=== PATIENT | female | born 1985 | race Caucasian/White ===

== ENCOUNTER 2023-03-26 12:08 | Emergency (ER) | payer OTHER ==
[~2023-03-26] VITALS: Ht 162.6 cm; Wt 92.1 kg
[2023-03-26] MEDS ORDERED: LIDOCAINE MPF 1% 10 MG/ML VIAL INJ ONE (12:20)
[2023-03-26] MEDS ORDERED: BACITRACIN OINT 500 UNITS/GM PKT TP ONE (12:20)
[2023-03-26 12:28] VITALS: BP 125/84; PULSE 89; RESP 18; TEMP 98.7; O2SAT 98
--- NOTE | 2023-03-26 13:14 | NUR ---
bibs for left hand lac from fan. bleeding controlled. csmpt intact.
[2023-03-26 13:49] VITALS: BP 120/76; PULSE 78; RESP 19; TEMP 98.6; O2SAT 98
--- NOTE | 2023-03-26 13:50 | NUR ---
Patient discharged with v/s stable. Written and verbal after care instructions given and explained. Patient verbalized understanding. Ambulatory with steady gait. All questions addressed prior to discharge. Advised to follow up with PMD.
== END 2023-03-26 13:50 | disposition home or self-care (01) ==
LOC: MED 12:08
DX: S61.012A Laceration without foreign body of left thumb without damage to nail, initial encounter (principal); S61.213A Laceration without foreign body of left middle finger without damage to nail, initial encounter; S61.211A Laceration without foreign body of left index finger without damage to nail, initial encounter; Z79.899 Other long term (current) drug therapy; W26.8XXA Contact with other sharp object(s), not elsewhere classified, initial encounter; Y93.89 Activity, other specified; Y92.89 Other specified places as the place of occurrence of the external cause; Y99.8 Other external cause status
CPT/HCPCS: 12001; 90471; 90715; 99283; J2001

== ENCOUNTER 2023-03-28 06:25 | Emergency (ER) | payer OTHER ==
[~2023-03-28] VITALS: Ht 154.9 cm; Wt 73.5 kg
[2023-03-28 06:30] VITALS: BP 113/72; PULSE 67; RESP 16; TEMP 97.9; O2SAT 100
== END 2023-03-28 07:22 | disposition home or self-care (01) ==
LOC: MED 06:25
DX: S61.411D Laceration without foreign body of right hand, subsequent encounter (principal); X58.XXXD Exposure to other specified factors, subsequent encounter
CPT/HCPCS: 99281